=== PATIENT | female | born 1960 | race Caucasian/White ===

== ENCOUNTER 2023-06-19 06:53 | Day surgery (SDC) | payer MEDICARE ==
[2023-06-19] MEDS ORDERED: fentaNYL 50 MCG/ML SDV ONE (07:21)
[2023-06-19] MEDS ORDERED: Propofol 200 MG/20 ML SDV ONE ×2 (07:21→08:50)
[2023-06-19] MEDS ORDERED: Midazolam 1 MG/ML 2 ML SDV ONE (07:21)
[2023-06-19] MEDS ORDERED: Sodium Chloride 0.9% 1,000 ML IV SCH (07:45)
== END 2023-06-19 11:19 | disposition home or self-care (01) ==
LOC: JP.SDS 06:53
PROVIDERS: ATTEND Surgery
DX: K52.89 Other specified noninfective gastroenteritis and colitis (principal); F32.A Depression, unspecified; E66.9 Obesity, unspecified; F17.200 Nicotine dependence, unspecified, uncomplicated
CPT/HCPCS: 43239; 88305; 88313; J2250; J2704; J3010; J7030